=== PATIENT | female | born 1975 | race Caucasian/White ===

== ENCOUNTER 2022-12-20 11:07 | Emergency (ER) | payer BC ==
[2022-12-20 11:23] VITALS: RESP 20; BMI 29.6
[2022-12-20] MEDS ORDERED: SODIUM CHLORIDE 1,000 ML IV ONE (11:23)
[2022-12-20] MEDS ORDERED: ACETAMINOPHEN 1000 MG/100 ML BAG IVPB ONE (11:23)
[2022-12-20] MEDS ORDERED: CEFTRIAXONE 1,000 MG in DEXTROSE 5%-WATER - 50 ML IVPB ONE (11:23)
[2022-12-20] MEDS ORDERED: cefTRIAXone SODIUM 1 GM VIAL ONE (11:36)
[2022-12-20 12:18] LABS: HEMATOCRIT 30.6 % (32.4-45.2); HEMOGLOBIN 9.7 G/dL (10.7-15.3); MCH 24.8 pg (25.7-33.7); MCHC 31.8 g/dl (32.0-36.0); MEAN CELL VOLUME 77.9 fl (80-96); MEAN PLT VOLUME 8.4 fl (7.5-11.1); PLATELET COUNT 370.2 10^3/uL (134-434); RBC 3.93 10^6/uL (3.60-5.2); RDW 17.9 % (11.6-15.6); WHITE BLOOD COUNT 12.4 10^3/uL (4.0-10.8)
[2022-12-20 12:26] LABS: ALBUMIN 3.5 g/dl (3.4-5.0); BILIRUBIN,TOTAL 0.4 mg/dl (0.2-1); CALCIUM 8.3 mg/dl (8.5-10); CREATININE 0.8 mg/dl (0.55-1.3); POTASSIUM 3.4 mmol/L (3.5-5.1); TOT PROT 6.2 g/dl (6.4-8.2)
[2022-12-20 12:51] VITALS: BP 99/44; PULSE 116; TEMP 100.6
[2022-12-20 12:53] LABS: EPITHELIAL CELLS FEW /hpf
[2022-12-20 13:01] LABS: PLATELET ESTIMATE ADEQUATE
[2022-12-20] MEDS ORDERED: KETOROLAC TROMETHAMINE 15 MG/ML VIAL IVPUSH ONE (13:01)
[2022-12-20] MEDS ORDERED: KETOROLAC TROMETHAMINE 15 MG/ML VIAL ONE (13:04)
== END 2022-12-20 15:24 | disposition home or self-care (01) ==
LOC: FER 11:07
PROC: 3E03329 Introduction of Other Anti-infective into Peripheral Vein, Percutaneous Approach (ICD-10-PCS; principal; 2022-12-20)
PROC: 3E033NZ Introduction of Analgesics, Hypnotics, Sedatives into Peripheral Vein, Percutaneous Approach (ICD-10-PCS; 2022-12-20)
PROC: 3E03329 Introduction of Other Anti-infective into Peripheral Vein, Percutaneous Approach (ICD-10-PCS; 2022-12-20)
DX: R30.0 Dysuria (principal); R82.998 Other abnormal findings in urine; R35.0 Frequency of micturition; R50.9 Fever, unspecified; R10.2 Pelvic and perineal pain; R11.0 Nausea; R63.0 Anorexia; N12 Tubulo-interstitial nephritis, not specified as acute or chronic; N39.0 Urinary tract infection, site not specified
CPT/HCPCS: 36415; 74176-TC; 80053; 81003; 81015; 83605; 84703; 85027; 87040; 87086; 87186; 93005; 99285-25